=== PATIENT | female | born 1985 | race Caucasian/White ===

== ENCOUNTER 2024-10-11 10:24 | Outpatient (CLI) | payer BC, SELFPAY ==
--- NOTE | ~2024-10-11 | US_ITS ---
US soft tissue head and neck 10/11/2024 11:05 Indication: Enlarged lymph nodes. History of total thyroidectomy. Palpable area left neck. Procedure: Ultrasound of the neck soft tissues Comparison: Ultrasound dated 05/05/2024 Findings: There are multiple normal-appearing cervical lymph nodes with fatty hilum. In the area of p alpable concern in the left neck there is an oval hypoechoic mass measuring 12 x 9 x 3 mm with efface ment of the fatty hilum and no internal vascularity. Impression: 1: Abnormal cervical lymph node in the region of palpable concern, with effaced fatty hilum and mildl y enlarged dimensions. Scattered remaining normal-appearing cervical lymph nodes. Given the history o f total thyroidectomy, the appearance raises concern for possible jannet metastases, particularly in t he context of prior thyroid carcinoma. Other considerations include reactive lymphadenopathy. Differe ntial diagnosis includes metastases, lymphoma and granulomatous disease. Consider ultrasound-guided f ine-needle aspiration. Reviewed, dictated and finalized at location A. Impression: 1: Abnormal cervical lymph node in the region of palpable concern, with effaced fatty hilum and mildly enlarged dimensions. Scattered remaining normal-appeari ng cervical lymph nodes. Given the history of total thyroidectomy, the appearan ce raises concern for possible jannet metastases, particularly in the context of prior thyroid carcinoma. Other considerations include reactive lymphadenopathy . Differential diagnosis includes metastases, lymphoma and granulomatous diseas e. Consider ultrasound-guided fine-needle aspiration.
== END 2024-10-11 10:25 | disposition home or self-care (01) ==
LOC: MICIMG 10:26
DX: R59.0 Localized enlarged lymph nodes (principal)
CPT/HCPCS: 76536

== ENCOUNTER 2024-10-11 16:14 | Emergency (ER) | payer BC, SELFPAY ==
--- NOTE | ~2024-10-11 | XR_ITS ---
Right Shoulder Technique: AP and axillary views were obtained. Clinical History: Pain Findings: No fracture or dislocation is seen. Osseous alignment is anatomic. The glenohumeral and acr omioclavicular joint spaces are preserved. Soft tissues are unremarkable. Impression: Unremarkable right shoulder radiographs. Reviewed, dictated and finalized at [facility]. Impression: Unremarkable right shoulder radiographs.
--- NOTE | ~2024-10-11 | XR_ITS ---
Right Forearm AP and lateral views of the right forearm were performed. Clinical History: Pain Findings: No fracture or dislocation is seen. Osseous alignment in anatomic. Joint spaces are prese rved. Soft tissues are unremarkable. Impression: Unremarkable exam. Reviewed, dictated and finalized at location [facility]. Impression: Unremarkable exam.
--- NOTE | ~2024-10-11 | XR_ITS ---
Right elbow Technique: AP, oblique, and lateral views were obtained. Clinical History: Pain Findings: No acute fracture or dislocation is seen. Osseous alignment is anatomic. Joint spaces are p reserved. There is no displacement of the fat pads, and soft tissues are unremarkable. Impression: Unremarkable radiographs. Reviewed, dictated and finalized at location . Impression: Unremarkable radiographs.
--- NOTE | ~2024-10-11 | XR_ITS ---
Right Humerus Technique: AP and lateral views were obtained. Clinical History: Pain Findings: No fracture or dislocation is seen. Osseous alignment is anatomic. Visualized joint spaces are grossly preserved. Soft tissues are unremarkable. Impression: Unremarkable examination. No fracture or dislocation. Reviewed, dictated and finalized at location . Impression: Unremarkable examination. No fracture or dislocation.
--- NOTE | ~2024-10-11 | XR_ITS ---
Right wrist Technique: PA, oblique, lateral, and ulnar deviation views were obtained. Clinical History: Pain Findings: No acute fracture or dislocation is seen. Osseous alignment is anatomic. Joint spaces are p reserved. Soft tissues are unremarkable. Impression: Unremarkable right wrist radiographs. Reviewed, dictated and finalized at location . Impression: Unremarkable right wrist radiographs.
--- NOTE | ~2024-10-11 | XR_ITS ---
Right Hand Technique: PA, oblique, and lateral views were obtained. Clinical History: Pain Findings: No acute fracture or dislocation is seen. Osseous alignment is anatomic. Joint spaces are p reserved. Soft tissues are unremarkable. Impression: Unremarkable right hand. Reviewed, dictated and finalized at location M. Impression: Unremarkable right hand.
[2024-10-11 17:18] VITALS: BP 137/88; PULSE 86; RESP 20; TEMP 36.3; O2SAT 100
--- NOTE | 2024-10-11 18:12 | ED_ITS ---
HPI - Extremity Injury (Upper) General Chief Complaint: Extremity Injury, Upper Stated Complaint: R arm pain/tingling after falling 3 weeks ago Time Seen by Provider: 10/11/24 17:50 Source: patient and family Mode of arrival: ambulatory Limitations: no limitations History of Present Illness HPI narrative: 39 y/o WF in the ED with right shoulder, arm, FA, wrist, and hand pain X3 weeks s/p fall. Pt states she became dizzy d/t known hypothyroidism putting in a [employer] internet in her home. Pt fell from standing height, landing on her right side. Pt denies LOC, head, neck, or back pain. Pt tried RICE and OTC philip lgesics at home for a week w/o relief. Pt saw PCP and xrays taken, but have not resulted. Pt given no pain meds by PCP. Related Data Allergies Allergy/AdvReac Type Severity Reaction Status Date / Time adhesive Allergy Hives Verified 10/11/24 17:21 amoxicillin Allergy Hives Verified 10/11/24 17:21 Penicillins Allergy Hives Verified 10/11/24 17:21 Sulfa (Sulfonamide Allergy Hives Verified 10/11/24 17:21 Antibiotics) Review of Systems Review of Systems: CONSTITUTIONAL: Denies fever, chills, or sweats. EYES: Denies visual changes, redness, or discharge. ENT: Denies rhinorrhea, congestion, sore throat, or otalgia. CARDIOVASCULAR: Denies chest pain, palpitations, or edema. RESPIRATORY: Denies cough or dyspnea. GASTROINTESTINAL: Denies abdominal pain, nausea, vomiting, or diarrhea. GENITOURINARY: Denies dysuria or hematuria. SKIN: Denies rash or itching. MUSCULOSKELETAL: Endorses right shoulder, arm, FA, wrist, hand pain. NEUROLOGIC: Denies headache, numbness, or weakness. PSYCHIATRIC: Denies anxiety or depression. Exam Const: General: healthy appearing, no acute distress and alert Nutritional Appearance: well nourished Orientation/consciousness: patient oriented x3 Limitations: no limitations HENMT: Head: normal to inspection Ears: external ears normal Face/Nose/Sinus: Normal external nose present Face and sinus: normal facial exam Mouth: Yes Normal oral and palatal mucosa present Eyes: Pupils: Equal, round and reactive pupils present EOM: EOMs intact bilaterally Neck: Neck: normal visual inspection Chest: Chest palpation & inspection: normal inspection of the chest Resp: Effort & Inspection: normal respiratory effort Auscultation: clear to auscultation bilaterally Cardio: Rate: regular rate Rhythm: regular rhythm GI: GI Palp: Yes Soft to palpation Auscultation: normal bowel sounds Skin: General skin exam: normal color Rashes: no rashes Wounds: no wounds Neuro: General: patient oriented x3 and moves all extremities Speech: normal speech Gait exam (Neuro): Normal gait present Extrem: General: normal exam except as noted Right upper extremity: normal capillary refill, shoulder/upper arm tenderness and abnormal ROM pain with active ROM in ABduction, in internal rotation and external rotation-, elbow/forearm tenderness and abnormal ROM pain with active ROM during, wrist abnormal to inspection, tenderness, abnormal ROM pain with active ROM during, radial pulse present and ulnar pulse present and Extremity exam: right hand normal capillary refill, tenderness and normal ROM of fingers Left upper extremity: normal to inspection, full ROM and normal capillary refill Right lower extremity: normal to inspection and full ROM Left lower extremity: normal to inspection and full ROM Psych: Mental Status: mental status grossly normal Affect: normal affect Attitude: cooperative Course Vital Signs Vital signs: Vital Signs Temperature 36.3 C L 10/11/24 17:18 Pulse Rate 86 10/11/24 17:18 Respiratory Rate 20 10/11/24 17:18 Blood Pressure 137/88 10/11/24 17:18 Pulse Oximetry 100 10/11/24 17:18 Oxygen Delivery Room Air 10/11/24 17:18 Temperature 36.3 C L 10/11/24 17:18 Pulse Rate 86 10/11/24 17:18 Respiratory Rate 20 10/11/24 17:18 Blood Pressure 137/88 10/11/24 17:18 Pulse Oximetry 100 10/11/24 17:18 Oxygen Delivery Room Air 10/11/24 17:18 MDM - Extremity Injury (Upper) MDM Narrative Medical decision making narrative: Patient placed in sling and ice applied, pain helped. All x-rays normal per radiology read. Patient given Toradol in the emergency room, pain resolved after administration. We will release to primary care for further observation. Differential Diagnosis Differential diagnosis: Likely sprain and strain of wrist, fracture of wrist, fracture of hand and fracture of humerus Medical Records Attestation: I reviewed the patient's medical records. Imaging Data Radiologist's impression: ITS Impressions Elbow X-Ray 10/11/24 18:39 Impression: Unremarkable radiographs. Forearm X-Ray 10/11/24 18:39 Impression: Unremarkable exam. Wrist X-Ray 10/11/24 18:39 Impression: Unremarkable right wrist radiographs. Hand X-Ray 10/11/24 18:45 Impression: Unremarkable right hand. Humerus X-Ray 10/11/24 18:45 Impression: Unremarkable examination. No fracture or dislocation. Shoulder X-Ray 10/11/24 18:45 Impression: Unremarkable right shoulder radiographs. Discharge Plan Discharge Clinical Impression: Sprain and strain of wrist, Sprain of right shoulder, Sprain of elbow, right Patient Disposition: Home Condition: Stable Instructions: Antibiotic Form, Elbow Sprain (ED), Shoulder Sprain (ED), Hand Sprain (ED), Wrist Sprain (ED) Additional Instructions: Take prescribed steroids. Use [id number] Motrin or Aleve and Tylenol for continued pain. Use sling to assist with elevation and pain control. Continue rest and ice. Follow up primary care provider as scheduled. Patient Language: Upper Sorbian Prescriptions: New methylprednisolone [Medrol (Danilo)] 4 mg tablets,dose pack See Rx Instructions .ROUTE .COMPLEX Qty: 21 0RF Rx Instructions: orally per package directions Follow-up/Referrals: Dossett,Pal Montoya MD [Primary Care Provider] - 1 Week
[2024-10-11] MEDS: KETOROLAC 30 MG/ML VIAL (*BKC) IM (18:39)
[2024-10-11 19:23] VITALS: BP 133/76; PULSE 71; RESP 20; TEMP 36.6; O2SAT 98
== END 2024-10-11 19:35 | disposition home or self-care (01) ==
PROVIDERS: Emergency Provider Registered Nurse Emergency; PCP Family Medicine
DX: S43.401A Unspecified sprain of right shoulder joint, initial encounter (principal); S63.501A Unspecified sprain of right wrist, initial encounter; S66.911A Strain of unspecified muscle, fascia and tendon at wrist and hand level, right hand, initial encounter; S53.401A Unspecified sprain of right elbow, initial encounter; E03.9 Hypothyroidism, unspecified; W19.XXXA Unspecified fall, initial encounter
CPT/HCPCS: 73030; 73060; 73080; 73090; 73110; 73130; 96372; 99284; A4565; J1885